=== PATIENT | male | born 1995 | race Caucasian/White ===

== ENCOUNTER 2018-12-20 13:58 | Emergency (ER) | payer OTHER ==
[2018-12-20] MEDS: ACETAMINOPHEN 325 MG TAB PO (15:06)
[2018-12-20] MEDS: DIPHTH/TET/ACEL PERTUSS (ADULT) 0.5 ML VIAL IM* (15:07)
== END 2018-12-20 16:08 | disposition home or self-care (01) ==
LOC: FTE 16:08
DX: S91.332A Puncture wound without foreign body, left foot, initial encounter (principal); W45.0XXA Nail entering through skin, initial encounter; Y92.9 Unspecified place or not applicable; Z23 Encounter for immunization
CPT/HCPCS: 90471; 90715; 99283-25